=== PATIENT | female | born 2000 | race Caucasian/White ===

== ENCOUNTER 2023-09-21 11:11 | Emergency (ER) | payer OTHER, SELFPAY ==
[2023-09-21 11:12] VITALS: BP 130/94; PULSE 75; RESP 16; TEMP 37; O2SAT 98; BMI 17.8
--- NOTE | 2023-09-21 11:20 | XR_ITS ---
FINAL REPORT CLINICAL HISTORY: pain over talus and tarsals dorsally after trauma COMPARISON: None FINDINGS: LEFT FOOT Three views of the left foot demonstrate no acute fracture or dislocation. The visualized joint spaces are normally aligned. The soft tissues are unremarkable. IMPRESSION: No acute bony abnormality. Reviewed, Interpreted and Dictated by Darien Phelps III, MD Transcribed by Cassidy Lane Authenticated and . [facility]
--- NOTE | 2023-09-21 11:23 | ED_ITS ---
Discharge Plan Disposition Patient Disposition: Home, Self-Care Chief Complaint: Extremity Injury, Lower Referrals Follow up/Referrals: Provider,Referral, MD [Primary Care Provider] - See instructions Activity Restrictions/Add. Instructions Additional Instructions/Restrictions: Take Tylenol 1000 mg every 6 hours (4 times daily) and ibuprofen 400 mg every 6 hours (4 times daily) as needed with food and water to prevent GI upset and kidney damage. Clinical Impressions Clinical Impression: Acute pain of left foot Discharge ED Provider: Vince Chávez General Adult HPI General Chief complaint: Extremity Injury, Lower Stated complaint: AO 09/18, left foot pain Time Seen by Provider: 09/21/23 11:14 Mode of Arrival: Ambulatory Source of Information: Patient Limitations: No Limitations Description of Symptoms (Recalled from ER Triage Doc. by RN): left foot pain History of Present Illness HPI narrative: Please note that above description of symptoms, in this electronic medical record under categorization of recalled from ER triage doctor by RN are reflective of an initial nursing assessment, however, is not reflective of my full history and physical exam that was personally taken and clarified. Consequentially, this preceding description of symptoms, which may include the patient's categorized chief complaint in the EMR, do not reflect my personal clinical impression, and the ultimate description of history of present illness and patient stated complaints should be deferred to this section of the note. Unless stated otherwise or congruent with this section of the note, additional signs, symptoms, or incongruence should be interpreted as inaccurate with my clinical impression. Related Data Allergies Allergy/AdvReac Type Severity Reaction Status Date / Time No Known Allergies Allergy Unverified 03/02/17 15:25 [facility] Disclaimer: The information contained in this section may have been updated after the patient was seen, as this information can be updated by other users. Social History Smoking Status: Never smoker alcohol intake: never current occupational status: employed Travel in the last 8 weeks: None ROS Obtained: Yes All systems reviewed & no additional complaints except as documented Physical Exam General General appearance: alert Head Head exam: atraumatic and normocephalic Eye Eye exam: Present normal appearance, PERRL and EOMI Neck Neck exam: Present normal inspection, full ROM and trachea midline Respiratory Respiratory exam: Absent respiratory distress, wheezes, stridor, accessory muscle use or prolonged expiratory phase Cardiovascular Cardiovascular exam: Present other (Pulses equal symmetric in upper and lower extremities) Abdominal Exam Abdominal exam: Present soft; Absent distention, tenderness or pulsatile mass Extremities Exam Extremities exam: Present other (Tenderness with mild bruising dorsal aspect of left talus/tarsals); Absent edema Neurological Exam Neurological exam: Present alert, oriented X3 and CN II-XII intact; Absent motor sensory deficit Skin Skin exam: Present warm and dry; Absent diaphoresis or erythema Medical Decision Making Medical Records Medical records reviewed: Yes I reviewed the patient's medical records. Yeison Inquiry Pt receiving controlled substance: No Yeison was queried for this patient: No Vital Signs: 09/21/23 11:12 Temperature 98.6 F Temperature Source Oral Pulse Rate [Right] 75 Respiratory Rate 16 Blood Pressure [Right Arm] 130/94 H Blood Pressure Mean [Right Arm] 106 02 Sat by Pulse Oximetry 98 Oxygen Delivery Method Room Air Orders (Tests/Meds): ORDERS Category Date Time Status Foot XR left minimum 3 views [XR foot LT min 3V] Stat Exams 09/21/23 11:20 Completed Medical Decision Narrative: 23-year-old female no relevant medical history presenting with left foot injury. Patient states that she was walking in her sisters room when she accidentally kicked the bed frame 2 days prior to this visit. Hit dorsal aspect of her foot at tarsals/talus where she had a fracture previously. Called her family doctor today to have an evaluation and get x-ray, no availability, so recommended she come to the emergency department for further evaluation. Patient is able to bear weight, it is moderate in intensity when bearing weight, radiates upward toward her tibia anteriorly. Mild in intensity when sitting. She has tried o nly Tylenol because she is breast-feeding. This does not seem to help much. Also unable to stay off it much because she also has a toddler she is responsible for. Just wants to make sure is not broken. History obtained with patient. On arrival, patient very well-appearing and hemodynamically stable. She has tenderness and bruising of the dorsal aspect of her left foot at midfoot about the talus and tarsals. Neurovascular intact with range of motion intact, but plantarflexion of digits tender. Differential includes hematoma, fracture, dislocation, sprain, strain, among others. X-rays obtained, these demonstrated no acute bony abnormality on independent interpretation. Because patient at baseline without signs or symptoms of clinical decompensation, deemed appropriate for discharge. Results were relayed to patient who voiced understanding and were agreeable to outpatient management and follow up. I discussed my clinical impression with patient and answered all questions. At th is time, the evidence for any other entities in the differential is insufficient to warrant any further testing or ED observation. This was explained as well. Advisory was given that persistent or worsening symptoms require further evaluation. I confirmed the understanding of this discussion. Rouge Sifter disclaimer Much of this encounter note is an electronic district sales representative spoken language to printed text. Electronic district sales representative of the spoken language may permit errors. Although I have reviewed the note, some errors may still exist. Critical Care Critical Care Time Critical Care Time: No
[2023-09-21 13:13] VITALS: BP 137/89; PULSE 71; RESP 18; TEMP 36.7; O2SAT 99
== END 2023-09-21 13:15 | disposition home or self-care (01) ==
PROVIDERS: Emergency Provider Emergency Medicine
DX: M79.672 Pain in left foot (principal); W22.8XXA Striking against or struck by other objects, initial encounter
CPT/HCPCS: 73630; 99283

== ENCOUNTER 2025-03-01 12:32 | Outpatient (CLI) | payer OTHER, SELFPAY ==
--- OUTSIDE RECORDS SUMMARY | 2025-03-02 09:34 | XMS_ITS | Clinical Summary ---
Author Organization Healthcare Address [facility] [place] [id number] Care Team Providers Care Psychologist Engineering Name Role Phone Dhruv Mejia APRN Primary Care Provider + Immunizations Immunization Administration Dates Next Due DTaP 05/11/2002,07/21/1999,1998 DTaP / HiB / IPV 1998,1998 Hep B, adult 1998,1998,1998 Hib (PRP-OMP) 07/21/1999,1998 IPV 05/11/2002,07/21/1999 Influenza, seasonal, injecta ble, preservative free 01/29/2015 MMR 05/11/2002,07/21/1999 Varicella 08/18/1999 Family History Medical History Relation Name Comments Conversions - Other Father FHx: ear ly [place] sudden cardiac (SCD) Father Depression Mother Hypertension Mother Leukemia Paternal Grandmother Relation Name Status Comments Father Mother Paternal Grandmother Social History Tobacco Use Types Packs/Day Years Used Date Smoking Tobacco: Passive Smo ke Exposure - Never Smoker Comments Unknown Sex and Gender Information Value Date Recorded Sex Assigned at Not on file Legal Sex Female 8:30 PM EDT Gender Identity Not on file Sexual Orientation Not on file Last Filed Vital Signs Vital Sign Reading Time Taken Comments Blood Pressure - - Pulse - - Temperature - - Respiratory Rate - - Oxygen Saturation - - Inhaled Oxygen Concentration - - Weight 58.1 kg (128 lb) 08/12/2016 10:53 AM EDT Height 167.6 cm (5' 6 ) 08/12/2016 10:53 AM EDT Body Mass Index 20.66 08/12/2016 10:53 AM EDT Plan of Treatment Not on file Care Teams Psychologist Engineering Relationship Specialty Start Date End Date Dhruv Mejia APRN [address] [place], [place] [phone] [facility] - General 07/26/20
== END 2025-03-01 23:59 | disposition home or self-care (01) ==
LOC: LAB.DROPOF 03-02 09:31
PROVIDERS: Visit Provider Student in an Organized Health Care Education/Training Program
DX: N39.0 Urinary tract infection, site not specified (principal)
CPT/HCPCS: 87086; 87088; 87186